=== PATIENT | male | born 1945 | race Two or more races ===

== ENCOUNTER → 2018-05-12 | Outpatient (CLI) | payer MEDICARE ==
[~2018-05-12] VITALS: Ht 160 cm; Wt 99.5 kg
[~2018-05-12] MED LIST: ALLO100T PO; AMLO-511 PO; ASPI-989 PO; ATEN50TA PO; FURO80 PO; GABA-531 PO; HYDR-2924 PO; INSLAN SQ; INSNOV SQ; KCIT5T PO; LIDOCAINE 4% 50 ML SOLUTION TP ONE; LIRA0.6P SQ; LOSA50TA64 PO; OMEP20 PO; TAMS0.4C32 PO
[2018-05-12 09:57] VITALS: BP 128/85
== END | disposition home or self-care (01) ==
LOC: HBOWC 09:31
PROVIDERS: ATTEND Nurse Practitioner Adult Health
DX: E11.622 Type 2 diabetes mellitus with other skin ulcer (principal); L97.321 Non-pressure chronic ulcer of left ankle limited to breakdown of skin; I87.2 Venous insufficiency (chronic) (peripheral); E11.22 Type 2 diabetes mellitus with diabetic chronic kidney disease; N18.3 Chronic kidney disease, stage 3 (moderate); I50.9 Heart failure, unspecified; E11.40 Type 2 diabetes mellitus with diabetic neuropathy, unspecified; M10.9 Gout, unspecified; G47.30 Sleep apnea, unspecified
CPT/HCPCS: 87070; 87077; 87186; 87205; G0463

== ENCOUNTER → 2018-05-19 | Outpatient (CLI) | payer MEDICARE ==
[~2018-05-19] MED LIST changes: -LIDOCAINE 4% 50 ML SOLUTION TP ONE
[2018-05-19 10:00] VITALS: BP 133/55
== END | disposition home or self-care (01) ==
LOC: HBOWC 09:34
PROVIDERS: ATTEND Nurse Practitioner Adult Health
DX: E11.622 Type 2 diabetes mellitus with other skin ulcer (principal); L97.321 Non-pressure chronic ulcer of left ankle limited to breakdown of skin; I87.2 Venous insufficiency (chronic) (peripheral); E11.40 Type 2 diabetes mellitus with diabetic neuropathy, unspecified; E11.22 Type 2 diabetes mellitus with diabetic chronic kidney disease; N18.3 Chronic kidney disease, stage 3 (moderate); I50.9 Heart failure, unspecified; M10.9 Gout, unspecified; G47.30 Sleep apnea, unspecified; Z79.4 Long term (current) use of insulin

== ENCOUNTER → 2018-06-02 | Outpatient (CLI) | payer MEDICARE ==
[2018-06-02 08:40] VITALS: BP 142/70
== END | disposition home or self-care (01) ==
LOC: HBOWC 08:14
PROVIDERS: ATTEND Nurse Practitioner Adult Health
DX: E11.622 Type 2 diabetes mellitus with other skin ulcer (principal); L97.321 Non-pressure chronic ulcer of left ankle limited to breakdown of skin; I87.2 Venous insufficiency (chronic) (peripheral); E11.40 Type 2 diabetes mellitus with diabetic neuropathy, unspecified; E11.22 Type 2 diabetes mellitus with diabetic chronic kidney disease; N18.3 Chronic kidney disease, stage 3 (moderate); I50.9 Heart failure, unspecified; M10.9 Gout, unspecified; G47.30 Sleep apnea, unspecified; Z79.82 Long term (current) use of aspirin; Z79.4 Long term (current) use of insulin

== ENCOUNTER → 2018-06-09 | Outpatient (CLI) | payer MEDICARE ==
[2018-06-09 08:58] VITALS: BP 144/59
== END | disposition home or self-care (01) ==
LOC: HBOWC 08:43
PROVIDERS: ATTEND Nurse Practitioner Adult Health
DX: E11.622 Type 2 diabetes mellitus with other skin ulcer (principal); L97.321 Non-pressure chronic ulcer of left ankle limited to breakdown of skin; I87.2 Venous insufficiency (chronic) (peripheral); E11.40 Type 2 diabetes mellitus with diabetic neuropathy, unspecified; E11.22 Type 2 diabetes mellitus with diabetic chronic kidney disease; N18.3 Chronic kidney disease, stage 3 (moderate); I50.9 Heart failure, unspecified; M10.9 Gout, unspecified; G47.30 Sleep apnea, unspecified; Z79.82 Long term (current) use of aspirin; Z79.4 Long term (current) use of insulin

== ENCOUNTER → 2018-06-16 | Outpatient (CLI) | payer MEDICARE ==
[2018-06-16 08:53] VITALS: BP 134/58
== END | disposition home or self-care (01) ==
LOC: HBOWC 08:34
PROVIDERS: ATTEND Nurse Practitioner Adult Health
DX: E11.622 Type 2 diabetes mellitus with other skin ulcer (principal); L97.321 Non-pressure chronic ulcer of left ankle limited to breakdown of skin; I87.2 Venous insufficiency (chronic) (peripheral); E11.22 Type 2 diabetes mellitus with diabetic chronic kidney disease; N18.3 Chronic kidney disease, stage 3 (moderate); I50.9 Heart failure, unspecified; E11.40 Type 2 diabetes mellitus with diabetic neuropathy, unspecified; M10.9 Gout, unspecified; Z79.4 Long term (current) use of insulin; Z79.82 Long term (current) use of aspirin

== ENCOUNTER → 2018-06-23 | Outpatient (CLI) | payer MEDICARE ==
[2018-06-23 08:50] VITALS: BP 150/60
== END | disposition home or self-care (01) ==
LOC: HBOWC 08:18
PROVIDERS: ATTEND Nurse Practitioner Adult Health
DX: E11.622 Type 2 diabetes mellitus with other skin ulcer (principal); L97.321 Non-pressure chronic ulcer of left ankle limited to breakdown of skin; I87.2 Venous insufficiency (chronic) (peripheral); E11.40 Type 2 diabetes mellitus with diabetic neuropathy, unspecified; E11.22 Type 2 diabetes mellitus with diabetic chronic kidney disease; N18.3 Chronic kidney disease, stage 3 (moderate); I50.9 Heart failure, unspecified; M10.9 Gout, unspecified; G47.30 Sleep apnea, unspecified; Z79.4 Long term (current) use of insulin; Z79.82 Long term (current) use of aspirin

== ENCOUNTER → 2018-06-30 | Outpatient (CLI) | payer MEDICARE ==
[2018-06-30 09:45] VITALS: BP 119/65
== END | disposition home or self-care (01) ==
LOC: HBOWC 09:18
PROVIDERS: ATTEND Nurse Practitioner Adult Health
DX: E11.622 Type 2 diabetes mellitus with other skin ulcer (principal); L97.321 Non-pressure chronic ulcer of left ankle limited to breakdown of skin; E11.40 Type 2 diabetes mellitus with diabetic neuropathy, unspecified; E11.22 Type 2 diabetes mellitus with diabetic chronic kidney disease; N18.3 Chronic kidney disease, stage 3 (moderate); I50.9 Heart failure, unspecified; I87.2 Venous insufficiency (chronic) (peripheral); M10.9 Gout, unspecified; G47.30 Sleep apnea, unspecified; Z79.4 Long term (current) use of insulin; Z79.82 Long term (current) use of aspirin

== ENCOUNTER → 2018-07-07 | Outpatient (CLI) | payer MEDICARE ==
[2018-07-07 08:44] VITALS: BP 132/48
== END | disposition home or self-care (01) ==
LOC: HBOWC 08:12
PROVIDERS: ATTEND Nurse Practitioner Adult Health
DX: E11.622 Type 2 diabetes mellitus with other skin ulcer (principal); L97.321 Non-pressure chronic ulcer of left ankle limited to breakdown of skin; I87.2 Venous insufficiency (chronic) (peripheral); E11.40 Type 2 diabetes mellitus with diabetic neuropathy, unspecified; E11.22 Type 2 diabetes mellitus with diabetic chronic kidney disease; N18.3 Chronic kidney disease, stage 3 (moderate); I50.9 Heart failure, unspecified; M10.9 Gout, unspecified; G47.30 Sleep apnea, unspecified; Z79.4 Long term (current) use of insulin; Z79.82 Long term (current) use of aspirin
CPT/HCPCS: 87070; 87077; 87186; 87205; G0463

== ENCOUNTER → 2018-07-14 | Outpatient (CLI) | payer MEDICARE ==
[2018-07-14 08:29] VITALS: BP 139/55
== END | disposition home or self-care (01) ==
LOC: HBOWC 08:09
PROVIDERS: ATTEND Nurse Practitioner Adult Health
DX: E11.622 Type 2 diabetes mellitus with other skin ulcer (principal); L97.321 Non-pressure chronic ulcer of left ankle limited to breakdown of skin; I87.2 Venous insufficiency (chronic) (peripheral); E11.40 Type 2 diabetes mellitus with diabetic neuropathy, unspecified; E11.22 Type 2 diabetes mellitus with diabetic chronic kidney disease; I50.9 Heart failure, unspecified; N18.3 Chronic kidney disease, stage 3 (moderate); M10.9 Gout, unspecified; G47.30 Sleep apnea, unspecified; Z79.4 Long term (current) use of insulin; Z79.82 Long term (current) use of aspirin

== ENCOUNTER → 2018-07-21 | Outpatient (CLI) | payer MEDICARE ==
[2018-07-21 08:41] VITALS: BP 112/58
== END | disposition home or self-care (01) ==
LOC: HBOWC 08:26
PROVIDERS: ATTEND Nurse Practitioner Adult Health
DX: E11.622 Type 2 diabetes mellitus with other skin ulcer (principal); L97.321 Non-pressure chronic ulcer of left ankle limited to breakdown of skin; I87.2 Venous insufficiency (chronic) (peripheral); E11.40 Type 2 diabetes mellitus with diabetic neuropathy, unspecified; E11.22 Type 2 diabetes mellitus with diabetic chronic kidney disease; I50.9 Heart failure, unspecified; N18.3 Chronic kidney disease, stage 3 (moderate); M10.9 Gout, unspecified; G47.30 Sleep apnea, unspecified; Z79.4 Long term (current) use of insulin; Z79.82 Long term (current) use of aspirin

== ENCOUNTER → 2018-07-28 | Outpatient (CLI) | payer MEDICARE ==
[2018-07-28 08:56] VITALS: BP 122/54
== END | disposition home or self-care (01) ==
LOC: HBOWC 08:31
PROVIDERS: ATTEND Nurse Practitioner Adult Health
DX: E11.622 Type 2 diabetes mellitus with other skin ulcer (principal); L97.321 Non-pressure chronic ulcer of left ankle limited to breakdown of skin; I87.2 Venous insufficiency (chronic) (peripheral); E11.40 Type 2 diabetes mellitus with diabetic neuropathy, unspecified; E11.22 Type 2 diabetes mellitus with diabetic chronic kidney disease; I50.9 Heart failure, unspecified; N18.3 Chronic kidney disease, stage 3 (moderate); M10.9 Gout, unspecified; G47.30 Sleep apnea, unspecified; Z79.82 Long term (current) use of aspirin; Z79.4 Long term (current) use of insulin

== ENCOUNTER → 2018-07-29 | Outpatient (CLI) | payer MEDICARE | END | disposition home or self-care (01) | LOC: RADPV 08:16 | PROVIDERS: ATTEND Nurse Practitioner Adult Health | DX: M19.072 Primary osteoarthritis, left ankle and foot (principal); R60.9 Edema, unspecified; I70.90 Unspecified atherosclerosis ==

== ENCOUNTER → 2018-08-04 | Outpatient (CLI) | payer MEDICARE ==
[2018-08-04 08:40] VITALS: BP 115/48
== END | disposition home or self-care (01) ==
LOC: HBOWC 08:35
PROVIDERS: ATTEND Nurse Practitioner Adult Health
DX: E11.622 Type 2 diabetes mellitus with other skin ulcer (principal); L97.321 Non-pressure chronic ulcer of left ankle limited to breakdown of skin; I87.2 Venous insufficiency (chronic) (peripheral); E11.40 Type 2 diabetes mellitus with diabetic neuropathy, unspecified; E11.22 Type 2 diabetes mellitus with diabetic chronic kidney disease; I50.9 Heart failure, unspecified; N18.3 Chronic kidney disease, stage 3 (moderate); M19.072 Primary osteoarthritis, left ankle and foot; M10.9 Gout, unspecified; G47.30 Sleep apnea, unspecified; Z79.4 Long term (current) use of insulin; Z79.82 Long term (current) use of aspirin

== ENCOUNTER → 2018-08-11 | Outpatient (CLI) | payer MEDICARE ==
[2018-08-11 09:00] VITALS: BP 123/57
== END | disposition home or self-care (01) ==
LOC: HBOWC 08:27
PROVIDERS: ATTEND Nurse Practitioner Adult Health
DX: E11.622 Type 2 diabetes mellitus with other skin ulcer (principal); L97.321 Non-pressure chronic ulcer of left ankle limited to breakdown of skin; E11.40 Type 2 diabetes mellitus with diabetic neuropathy, unspecified; E11.22 Type 2 diabetes mellitus with diabetic chronic kidney disease; I50.9 Heart failure, unspecified; N18.3 Chronic kidney disease, stage 3 (moderate); M10.9 Gout, unspecified; I87.2 Venous insufficiency (chronic) (peripheral); M19.072 Primary osteoarthritis, left ankle and foot; G47.30 Sleep apnea, unspecified; Z79.82 Long term (current) use of aspirin; Z79.4 Long term (current) use of insulin

== ENCOUNTER → 2018-08-18 | Outpatient (CLI) | payer MEDICARE ==
[2018-08-18 08:32] VITALS: BP 138/53
== END | disposition home or self-care (01) ==
LOC: HBOWC 08:11
PROVIDERS: ATTEND Nurse Practitioner Adult Health
DX: E11.622 Type 2 diabetes mellitus with other skin ulcer (principal); L97.321 Non-pressure chronic ulcer of left ankle limited to breakdown of skin; I87.2 Venous insufficiency (chronic) (peripheral); E11.40 Type 2 diabetes mellitus with diabetic neuropathy, unspecified; E11.22 Type 2 diabetes mellitus with diabetic chronic kidney disease; I50.9 Heart failure, unspecified; N18.3 Chronic kidney disease, stage 3 (moderate); M10.9 Gout, unspecified; M19.072 Primary osteoarthritis, left ankle and foot; G47.30 Sleep apnea, unspecified; Z79.4 Long term (current) use of insulin; Z79.82 Long term (current) use of aspirin

== ENCOUNTER → 2018-08-25 | Outpatient (CLI) | payer MEDICARE ==
[2018-08-25 09:25] VITALS: BP 140/51
== END | disposition home or self-care (01) ==
LOC: HBOWC 08:23
PROVIDERS: ATTEND Nurse Practitioner Adult Health
DX: E11.622 Type 2 diabetes mellitus with other skin ulcer (principal); L97.321 Non-pressure chronic ulcer of left ankle limited to breakdown of skin; I87.2 Venous insufficiency (chronic) (peripheral); E11.40 Type 2 diabetes mellitus with diabetic neuropathy, unspecified; E11.22 Type 2 diabetes mellitus with diabetic chronic kidney disease; I50.9 Heart failure, unspecified; N18.3 Chronic kidney disease, stage 3 (moderate); M10.9 Gout, unspecified; M19.072 Primary osteoarthritis, left ankle and foot; G47.30 Sleep apnea, unspecified; Z79.4 Long term (current) use of insulin; Z79.82 Long term (current) use of aspirin

== ENCOUNTER → 2018-09-01 | Outpatient (CLI) | payer MEDICARE ==
[2018-09-01 10:11] VITALS: BP 147/64
== END | disposition home or self-care (01) ==
LOC: HBOWC 08:28
PROVIDERS: ATTEND Nurse Practitioner Adult Health
DX: E11.622 Type 2 diabetes mellitus with other skin ulcer (principal); L97.321 Non-pressure chronic ulcer of left ankle limited to breakdown of skin; I87.2 Venous insufficiency (chronic) (peripheral); E11.40 Type 2 diabetes mellitus with diabetic neuropathy, unspecified; E11.22 Type 2 diabetes mellitus with diabetic chronic kidney disease; N18.3 Chronic kidney disease, stage 3 (moderate); I50.9 Heart failure, unspecified; G47.30 Sleep apnea, unspecified; M10.9 Gout, unspecified; M19.072 Primary osteoarthritis, left ankle and foot; Z79.4 Long term (current) use of insulin; Z79.82 Long term (current) use of aspirin

== ENCOUNTER → 2018-09-08 | Outpatient (CLI) | payer MEDICARE ==
[2018-09-08 08:30] VITALS: BP 134/52
== END | disposition home or self-care (01) ==
LOC: HBOWC 08:29
PROVIDERS: ATTEND Nurse Practitioner Adult Health
DX: E11.622 Type 2 diabetes mellitus with other skin ulcer (principal); L97.321 Non-pressure chronic ulcer of left ankle limited to breakdown of skin; I87.2 Venous insufficiency (chronic) (peripheral); E11.40 Type 2 diabetes mellitus with diabetic neuropathy, unspecified; E11.22 Type 2 diabetes mellitus with diabetic chronic kidney disease; I50.9 Heart failure, unspecified; N18.3 Chronic kidney disease, stage 3 (moderate); M10.9 Gout, unspecified; M19.072 Primary osteoarthritis, left ankle and foot; G47.30 Sleep apnea, unspecified; Z79.4 Long term (current) use of insulin; Z79.82 Long term (current) use of aspirin

== ENCOUNTER → 2018-09-15 | Outpatient (CLI) | payer MEDICARE ==
[2018-09-15 08:30] VITALS: BP 127/51
== END | disposition home or self-care (01) ==
LOC: HBOWC 08:21
PROVIDERS: ATTEND Nurse Practitioner Adult Health
DX: E11.622 Type 2 diabetes mellitus with other skin ulcer (principal); L97.321 Non-pressure chronic ulcer of left ankle limited to breakdown of skin; I87.2 Venous insufficiency (chronic) (peripheral); E11.40 Type 2 diabetes mellitus with diabetic neuropathy, unspecified; E11.22 Type 2 diabetes mellitus with diabetic chronic kidney disease; N18.3 Chronic kidney disease, stage 3 (moderate); I50.9 Heart failure, unspecified; G47.30 Sleep apnea, unspecified; M10.9 Gout, unspecified; M19.072 Primary osteoarthritis, left ankle and foot; Z79.82 Long term (current) use of aspirin; Z79.4 Long term (current) use of insulin

== ENCOUNTER → 2018-09-22 | Outpatient (CLI) | payer MEDICARE ==
[2018-09-22 09:58] VITALS: BP 141/65
== END | disposition home or self-care (01) ==
LOC: HBOWC 08:31
PROVIDERS: ATTEND Nurse Practitioner Adult Health
DX: E11.622 Type 2 diabetes mellitus with other skin ulcer (principal); L97.321 Non-pressure chronic ulcer of left ankle limited to breakdown of skin; I87.2 Venous insufficiency (chronic) (peripheral); E11.40 Type 2 diabetes mellitus with diabetic neuropathy, unspecified; E11.22 Type 2 diabetes mellitus with diabetic chronic kidney disease; N18.3 Chronic kidney disease, stage 3 (moderate); I50.9 Heart failure, unspecified; G47.30 Sleep apnea, unspecified; M10.9 Gout, unspecified; M19.072 Primary osteoarthritis, left ankle and foot; Z79.82 Long term (current) use of aspirin; Z79.4 Long term (current) use of insulin

== ENCOUNTER → 2018-09-29 | Outpatient (CLI) | payer MEDICARE ==
[2018-09-29 08:44] VITALS: BP 136/55
== END | disposition home or self-care (01) ==
LOC: HBOWC 08:21
PROVIDERS: ATTEND Nurse Practitioner Adult Health
DX: E11.622 Type 2 diabetes mellitus with other skin ulcer (principal); L97.321 Non-pressure chronic ulcer of left ankle limited to breakdown of skin; I87.2 Venous insufficiency (chronic) (peripheral); E11.40 Type 2 diabetes mellitus with diabetic neuropathy, unspecified; E11.22 Type 2 diabetes mellitus with diabetic chronic kidney disease; N18.3 Chronic kidney disease, stage 3 (moderate); I50.9 Heart failure, unspecified; G47.30 Sleep apnea, unspecified; M10.9 Gout, unspecified; M19.072 Primary osteoarthritis, left ankle and foot; Z79.82 Long term (current) use of aspirin; Z79.4 Long term (current) use of insulin

== ENCOUNTER → 2018-10-06 | Outpatient (CLI) | payer MEDICARE ==
[~2018-10-06] MED LIST changes: +LIDOCAINE 2% 5 ML JELLY TP ONE
[2018-10-06 08:49] VITALS: BP 122/55
== END | disposition home or self-care (01) ==
LOC: HBOWC 08:26
PROVIDERS: ATTEND Nurse Practitioner Adult Health
DX: E11.622 Type 2 diabetes mellitus with other skin ulcer (principal); L97.321 Non-pressure chronic ulcer of left ankle limited to breakdown of skin; I87.2 Venous insufficiency (chronic) (peripheral); E11.40 Type 2 diabetes mellitus with diabetic neuropathy, unspecified; E11.22 Type 2 diabetes mellitus with diabetic chronic kidney disease; N18.3 Chronic kidney disease, stage 3 (moderate); I50.9 Heart failure, unspecified; G47.30 Sleep apnea, unspecified; M10.9 Gout, unspecified; M19.072 Primary osteoarthritis, left ankle and foot; Z79.82 Long term (current) use of aspirin; Z79.4 Long term (current) use of insulin

== ENCOUNTER → 2018-10-13 | Outpatient (CLI) | payer MEDICARE ==
[~2018-10-13] MED LIST changes: +AMOX1TAB15 PO; -LIDOCAINE 2% 5 ML JELLY TP ONE
[2018-10-13 09:26] VITALS: BP 118/58
== END | disposition home or self-care (01) ==
LOC: HBOWC 08:18
PROVIDERS: ATTEND Nurse Practitioner Adult Health
DX: E11.622 Type 2 diabetes mellitus with other skin ulcer (principal); L97.321 Non-pressure chronic ulcer of left ankle limited to breakdown of skin; I87.2 Venous insufficiency (chronic) (peripheral); E11.40 Type 2 diabetes mellitus with diabetic neuropathy, unspecified; E11.22 Type 2 diabetes mellitus with diabetic chronic kidney disease; N18.3 Chronic kidney disease, stage 3 (moderate); I50.9 Heart failure, unspecified; G47.30 Sleep apnea, unspecified; M10.9 Gout, unspecified; M19.072 Primary osteoarthritis, left ankle and foot; Z79.82 Long term (current) use of aspirin; Z79.4 Long term (current) use of insulin

== ENCOUNTER → 2018-10-20 | Outpatient (CLI) | payer MEDICARE ==
[2018-10-20 09:04] VITALS: BP 125/57
== END | disposition home or self-care (01) ==
LOC: HBOWC 08:24
PROVIDERS: ATTEND Nurse Practitioner Adult Health
DX: E11.622 Type 2 diabetes mellitus with other skin ulcer (principal); L97.321 Non-pressure chronic ulcer of left ankle limited to breakdown of skin; E11.40 Type 2 diabetes mellitus with diabetic neuropathy, unspecified; E11.22 Type 2 diabetes mellitus with diabetic chronic kidney disease; I87.2 Venous insufficiency (chronic) (peripheral); N18.3 Chronic kidney disease, stage 3 (moderate); I50.9 Heart failure, unspecified; G47.30 Sleep apnea, unspecified; M10.9 Gout, unspecified; M19.072 Primary osteoarthritis, left ankle and foot; Z79.82 Long term (current) use of aspirin; Z79.4 Long term (current) use of insulin
CPT/HCPCS: 11042

== ENCOUNTER → 2018-10-28 | Outpatient (CLI) | payer MEDICARE ==
[~2018-10-28] MED LIST changes: +TETRACAINE/BENZOCAINE/BUTAMBEN 32 GM GEL TP ONE
[2018-10-28 09:00] VITALS: BP 117/52
== END | disposition home or self-care (01) ==
LOC: HBOWC 08:30
PROVIDERS: ATTEND Podiatrist
DX: E11.622 Type 2 diabetes mellitus with other skin ulcer (principal); L97.322 Non-pressure chronic ulcer of left ankle with fat layer exposed; I87.2 Venous insufficiency (chronic) (peripheral); E11.40 Type 2 diabetes mellitus with diabetic neuropathy, unspecified; E11.22 Type 2 diabetes mellitus with diabetic chronic kidney disease; I50.9 Heart failure, unspecified; N18.3 Chronic kidney disease, stage 3 (moderate); M10.9 Gout, unspecified; M19.072 Primary osteoarthritis, left ankle and foot; G47.30 Sleep apnea, unspecified; Z79.4 Long term (current) use of insulin; Z79.82 Long term (current) use of aspirin
CPT/HCPCS: 11042

== ENCOUNTER → 2018-11-03 | Outpatient (CLI) | payer MEDICARE ==
[~2018-11-03] MED LIST changes: -TETRACAINE/BENZOCAINE/BUTAMBEN 32 GM GEL TP ONE
[2018-11-03 08:40] VITALS: BP 130/50
== END | disposition home or self-care (01) ==
LOC: HBOWC 08:46
PROVIDERS: ATTEND Nurse Practitioner Adult Health
DX: E11.622 Type 2 diabetes mellitus with other skin ulcer (principal); L97.322 Non-pressure chronic ulcer of left ankle with fat layer exposed; I87.2 Venous insufficiency (chronic) (peripheral); E11.40 Type 2 diabetes mellitus with diabetic neuropathy, unspecified; E11.22 Type 2 diabetes mellitus with diabetic chronic kidney disease; I50.9 Heart failure, unspecified; N18.3 Chronic kidney disease, stage 3 (moderate); M10.9 Gout, unspecified; M19.072 Primary osteoarthritis, left ankle and foot; G47.30 Sleep apnea, unspecified; Z79.4 Long term (current) use of insulin; Z79.82 Long term (current) use of aspirin
CPT/HCPCS: 11042

== ENCOUNTER → 2018-11-10 | Outpatient (CLI) | payer MEDICARE ==
[2018-11-10 08:10] VITALS: BP 117/51
== END | disposition home or self-care (01) ==
LOC: HBOWC 08:22
PROVIDERS: ATTEND Nurse Practitioner Adult Health
DX: E11.622 Type 2 diabetes mellitus with other skin ulcer (principal); L97.322 Non-pressure chronic ulcer of left ankle with fat layer exposed; I87.2 Venous insufficiency (chronic) (peripheral); E11.40 Type 2 diabetes mellitus with diabetic neuropathy, unspecified; E11.22 Type 2 diabetes mellitus with diabetic chronic kidney disease; I50.9 Heart failure, unspecified; N18.3 Chronic kidney disease, stage 3 (moderate); M10.9 Gout, unspecified; M19.072 Primary osteoarthritis, left ankle and foot; G47.30 Sleep apnea, unspecified; Z79.4 Long term (current) use of insulin; Z79.82 Long term (current) use of aspirin
CPT/HCPCS: 11042

== ENCOUNTER → 2018-11-25 | Outpatient (CLI) | payer MEDICARE ==
[~2018-11-25] MED LIST changes: +LIDOCAINE 2% 5 ML JELLY TP ONE
[2018-11-25 08:48] VITALS: BP 118/61
== END | disposition home or self-care (01) ==
LOC: HBOWC 08:17
PROVIDERS: ATTEND Podiatrist
DX: E11.622 Type 2 diabetes mellitus with other skin ulcer (principal); L97.322 Non-pressure chronic ulcer of left ankle with fat layer exposed; I87.2 Venous insufficiency (chronic) (peripheral); E11.40 Type 2 diabetes mellitus with diabetic neuropathy, unspecified; E11.22 Type 2 diabetes mellitus with diabetic chronic kidney disease; I50.9 Heart failure, unspecified; N18.3 Chronic kidney disease, stage 3 (moderate); M10.9 Gout, unspecified; M19.072 Primary osteoarthritis, left ankle and foot; G47.30 Sleep apnea, unspecified; Z79.4 Long term (current) use of insulin; Z79.82 Long term (current) use of aspirin
CPT/HCPCS: 11042

== ENCOUNTER → 2018-12-08 | Outpatient (CLI) | payer MEDICARE ==
[~2018-12-08] MED LIST changes: -AMLO-511 PO; +AMLO5TAB9 PO; -LIDOCAINE 2% 5 ML JELLY TP ONE
[2018-12-08 08:33] VITALS: BP 141/57
== END | disposition home or self-care (01) ==
LOC: HBOWC 08:04
PROVIDERS: ATTEND Nurse Practitioner Adult Health
DX: E11.622 Type 2 diabetes mellitus with other skin ulcer (principal); L97.322 Non-pressure chronic ulcer of left ankle with fat layer exposed; I87.2 Venous insufficiency (chronic) (peripheral); E11.40 Type 2 diabetes mellitus with diabetic neuropathy, unspecified; E11.22 Type 2 diabetes mellitus with diabetic chronic kidney disease; I50.9 Heart failure, unspecified; N18.3 Chronic kidney disease, stage 3 (moderate); M10.9 Gout, unspecified; M19.072 Primary osteoarthritis, left ankle and foot; G47.30 Sleep apnea, unspecified; Z79.4 Long term (current) use of insulin; Z79.82 Long term (current) use of aspirin

== ENCOUNTER → 2019-01-05 | Outpatient (CLI) | payer MEDICARE ==
[2019-01-05 08:00] VITALS: BP 126/53
== END | disposition home or self-care (01) ==
LOC: HBOWC 08:12
PROVIDERS: ATTEND Nurse Practitioner Adult Health
DX: E11.622 Type 2 diabetes mellitus with other skin ulcer (principal); L97.321 Non-pressure chronic ulcer of left ankle limited to breakdown of skin; L97.211 Non-pressure chronic ulcer of right calf limited to breakdown of skin; L97.221 Non-pressure chronic ulcer of left calf limited to breakdown of skin; I87.2 Venous insufficiency (chronic) (peripheral); E11.40 Type 2 diabetes mellitus with diabetic neuropathy, unspecified; E11.22 Type 2 diabetes mellitus with diabetic chronic kidney disease; I13.0 Hypertensive heart and chronic kidney disease with heart failure and stage 1 through stage 4 chronic kidney disease, or unspecified chronic kidney disease; I50.9 Heart failure, unspecified; N18.3 Chronic kidney disease, stage 3 (moderate); M19.072 Primary osteoarthritis, left ankle and foot; G47.30 Sleep apnea, unspecified; M10.9 Gout, unspecified; Z79.4 Long term (current) use of insulin; Z79.82 Long term (current) use of aspirin

== ENCOUNTER → 2019-01-26 | Outpatient (CLI) | payer MEDICARE ==
[2019-01-26 09:20] VITALS: BP 133/60
== END | disposition home or self-care (01) ==
LOC: HBOWC 08:20
PROVIDERS: ATTEND Nurse Practitioner Adult Health
DX: E11.622 Type 2 diabetes mellitus with other skin ulcer (principal); L97.321 Non-pressure chronic ulcer of left ankle limited to breakdown of skin; L97.211 Non-pressure chronic ulcer of right calf limited to breakdown of skin; L97.221 Non-pressure chronic ulcer of left calf limited to breakdown of skin; I87.2 Venous insufficiency (chronic) (peripheral); E11.40 Type 2 diabetes mellitus with diabetic neuropathy, unspecified; E11.22 Type 2 diabetes mellitus with diabetic chronic kidney disease; I13.0 Hypertensive heart and chronic kidney disease with heart failure and stage 1 through stage 4 chronic kidney disease, or unspecified chronic kidney disease; I50.9 Heart failure, unspecified; N18.3 Chronic kidney disease, stage 3 (moderate); M19.072 Primary osteoarthritis, left ankle and foot; G47.30 Sleep apnea, unspecified; M10.9 Gout, unspecified; Z79.4 Long term (current) use of insulin; Z79.82 Long term (current) use of aspirin
CPT/HCPCS: 87070; 87205; G0463

== ENCOUNTER → 2019-02-23 | Outpatient (CLI) | payer MEDICARE ==
[2019-02-23 10:49] VITALS: BP 142/67
== END | disposition home or self-care (01) ==
LOC: HBOWC 09:46
PROVIDERS: ATTEND Nurse Practitioner Adult Health
DX: E11.622 Type 2 diabetes mellitus with other skin ulcer (principal); L97.321 Non-pressure chronic ulcer of left ankle limited to breakdown of skin; L97.211 Non-pressure chronic ulcer of right calf limited to breakdown of skin; L97.221 Non-pressure chronic ulcer of left calf limited to breakdown of skin; I87.2 Venous insufficiency (chronic) (peripheral); E11.40 Type 2 diabetes mellitus with diabetic neuropathy, unspecified; E11.22 Type 2 diabetes mellitus with diabetic chronic kidney disease; I13.0 Hypertensive heart and chronic kidney disease with heart failure and stage 1 through stage 4 chronic kidney disease, or unspecified chronic kidney disease; I50.9 Heart failure, unspecified; N18.3 Chronic kidney disease, stage 3 (moderate); M19.072 Primary osteoarthritis, left ankle and foot; G47.30 Sleep apnea, unspecified; M10.9 Gout, unspecified; Z79.4 Long term (current) use of insulin; Z79.82 Long term (current) use of aspirin